=== PATIENT | female | born 1975 | race Caucasian/White ===

== ENCOUNTER → 2016-04-18 | Outpatient (CLI) | payer OTHER ==
--- OUTSIDE RECORDS SUMMARY | 2016-04-18 13:34 | XMS REPORT ---
Author Author VANESSA OLGUIN [facility], [place] eClinicalWorks Address Unknown Phone Unavailable Care Team Providers Care Rn Interventional Name Role Phone VANESSA OLGUIN CP Unavailable Allergies No Known Allergies Problems Problem Type Condition Code Onset Dates Condition Status Problem Essential hypertension I10 Active Problem Anxiety F41.9 Active Problem Migraine headache G43.909 Active Problem Insomnia G47.00 Active Problem Irritable bowel syndrome with diarrhea K58.0 Active Problem Cough R05 Active Medications Medication Code System Code Instructions Start Date End Date Status Dosage Aitdffejra-LWSA-Ruszhlyp [facility] [address]-83 50-325-40 MG Orally q4 hrs prn pain, do not exceed 6 tabs in 24 hrs September 03, 2015 2 capsules Results No Known Results Summary Purpose eClinicalWorks Submission
--- NOTE | 2016-04-18 19:00 | Diagnostic Imaging Report ---
Bilateral diagnostic mammogram. INDICATION: Right breast pain. The current study was also evaluated with a Computer Aided Detection (CAD) system. COMPARISON 02/24/2015. FINDINGS: There are scattered fibroglandular densities. There is a circumscribed 6 mm nodule unchanged from 2014 exam in the anterior aspect of the right breast at about 11 o'clock zone. Benign-appearing calcifications are seen in the left breast. Biopsy results are reviewed and demonstrate no underlying suspicious lesion. IMPRESSION: No mammographic evidence of malignancy. Ultrasound evaluation pending. ACR BI-RADS Category 0: Incomplete. (Needs additional imaging evaluation). Result letter will be mailed to the patient. Note: At least 10% of breast cancer is not imaged by mammography. Dictated by: Dictated on workstation # [id number]
--- NOTE | 2016-04-18 19:02 | Diagnostic Imaging Report ---
Right breast ultrasound. INDICATION: Lateral right breast pain. FINDINGS: Unremarkable breast parenchyma seen with no focal lesion around the area of pain. IMPRESSION: Negative study. Clinical follow-up recommended. ACR BI-RADS Category 1: Negative. Dictated by: Dictated on workstation # [id number]
== END ==
LOC: RAD 13:30
PROVIDERS: ATTEND Nurse Practitioner Family
DX: N64.1 Fat necrosis of breast (principal)
CPT/HCPCS: 77066

== ENCOUNTER → 2017-04-07 | Outpatient (CLI) | payer OTHER ==
--- NOTE | 2017-04-07 19:06 | Diagnostic Imaging Report ---
INDICATION: Palpable lump at the 3 o'clock location of the left breast. Patient currently denies having any palpable abnormality and states that the patient's physician felt a lump. Correlation is made with prior exams from 04/18/2016 and 02/04/2015. The current study was also evaluated with a Computer Aided Detection (CAD) system. FINDINGS: Scattered parenchymal densities are noted bilaterally. There are well-defined nodules in the right breast which appear stable. No new mass or malignant-appearing microcalcifications are seen. There is a biopsy clip in the lower-inner left breast. The axillae are unremarkable. IMPRESSION: No mammographic features suspicious for malignancy are identified. Even so, further evaluation of the left breast 3 clock location with ultrasound is recommended. ACR BI-RADS Category 0: Incomplete. (Needs additional imaging evaluation). Result letter will be mailed to the patient. Note: At least 10% of breast cancer is not imaged by mammography. Dictated by: Dictated on workstation # [id number]
--- NOTE | 2017-04-07 19:56 | Diagnostic Imaging Report ---
INDICATION: Palpable lump in the outer left breast. Patient denies palpable abnormality. Patient states the doctor felt a lump at the 3 o'clock location. FINDINGS: Sonographic interrogation of the 3 o'clock location of the left breast was performed and compared with the diagnostic mammogram earlier the same day. No solid or cystic mass is detected. The left axilla is unremarkable. IMPRESSION: No sonographic abnormality is seen. The patient may return to routine annual screening mammography. Continued close clinical and self breast exam is recommended to confirm stability of the palpable abnormality. ACR BI-RADS Category 1: Negative. Dictated by: Dictated on workstation # [id number]
== END ==
LOC: RAD 12:55
PROVIDERS: ATTEND Nurse Practitioner Family
DX: N63.20 Unspecified lump in the left breast, unspecified quadrant (principal)
CPT/HCPCS: 76642; 77066

== ENCOUNTER → 2018-04-17 | Outpatient (CLI) | payer OTHER ==
--- NOTE | 2018-04-18 21:23 | Diagnostic Imaging Report ---
INDICATION: Routine screening. Comparison is made with prior mammograms from 04/07/2017 and 04/18/2016. 2-D and 3-D bilateral screening mammography was performed with computer-aided Detection (CAD) system. FINDINGS: Scattered fibroglandular densities are identified bilaterally. Circumscribed benign-appearing nodular densities in the right breast are again noted and appear stable. Biopsy clip in the medial aspect of the left breast is again noted. No spiculated mass or malignant-appearing microcalcifications are seen. The axillae are unremarkable. IMPRESSION: No mammographic features suspicious for malignancy are identified. ACR BI-RADS Category 2: Benign findings. Result letter will be mailed to the patient. Note: At least 10% of breast cancer is not imaged by mammography. Dictated on workstation # [id number]
== END ==
LOC: RAD 15:36
PROVIDERS: ATTEND Nurse Practitioner Family
DX: Z12.31 Encounter for screening mammogram for malignant neoplasm of breast (principal)
CPT/HCPCS: 77067

== ENCOUNTER → 2019-04-18 | Outpatient (CLI) | payer MEDICAID, OTHER ==
--- NOTE | 2019-04-18 13:46 | Diagnostic Imaging Report ---
INDICATION: Routine screening. COMPARISON is made with prior mammograms from 04/17/2018 and 04/07/2017. 2-D and 3-D bilateral screening mammography was performed with CAD. Scattered fibroglandular densities are identified bilaterally. Right breast circumscribed nodular densities are stable. Biopsy clip in the left breast is stable. No new mass or malignant appearing microcalcifications are seen. Axillae are unremarkable. IMPRESSION: BI-RADS Category 2 No mammographic features suspicious for malignancy are identified. ACR BI-RADS Category 2: Benign findings. Result letter will be mailed to the patient. Note: At least 10% of breast cancer is not imaged by mammography. Dictated by: Dictated on workstation # [id number]
== END ==
LOC: RAD 10:17
PROVIDERS: ATTEND Nurse Practitioner Family
DX: Z12.31 Encounter for screening mammogram for malignant neoplasm of breast (principal)
CPT/HCPCS: 77067

== ENCOUNTER → 2020-05-29 | Outpatient (CLI) | payer MEDICAID ==
--- NOTE | 2020-06-01 08:45 | Diagnostic Imaging Report ---
INDICATION: Routine screening. COMPARISON: 04/18/2019 and 04/17/2018. TECHNIQUE: 2D and 3D bilateral screening mammography was performed with CAD. FINDINGS: Both breasts are heterogeneously dense, limiting the sensitivity of mammography. The nodular densities in the right breast are stable. There are benign calcifications present. There is a biopsy clip in the left breast. No new mass or malignant appearing microcalcifications are seen. The axillae are unremarkable. IMPRESSION: No mammographic features suspicious for malignancy are identified. ACR BI-RADS Category 2: Benign findings. Result letter will be mailed to the patient. Note: At least 10% of breast cancer is not imaged by mammography. Dictated by: Dictated on workstation # [id number]
== END ==
LOC: RAD 15:22
PROVIDERS: ATTEND Nurse Practitioner Family
DX: Z12.31 Encounter for screening mammogram for malignant neoplasm of breast (principal)
CPT/HCPCS: 77063; 77067

== ENCOUNTER → 2021-05-31 | Outpatient (CLI) | payer MEDICAID ==
--- NOTE | 2021-05-31 16:34 | Diagnostic Imaging Report ---
INDICATION: Routine screening. COMPARISON: 05/29/2020 and 04/18/2019. TECHNIQUE: 2D and 3D bilateral screening mammography was performed with CAD. FINDINGS: Scattered fibroglandular densities are identified bilaterally. The nodular densities in the upper outer right breast are stable. No spiculated mass or malignant-appearing microcalcifications are seen. The axillae are unremarkable. IMPRESSION: No mammographic features suspicious for malignancy are identified. ACR BI-RADS Category 2: Benign findings. Result letter will be mailed to the patient. Note: At least 10% of breast cancer is not imaged by mammography. Dictated by: Dictated on workstation # [id number]
== END ==
LOC: RAD 14:45
PROVIDERS: ATTEND Nurse Practitioner Family
DX: Z12.31 Encounter for screening mammogram for malignant neoplasm of breast (principal)
CPT/HCPCS: 77063; 77067

== ENCOUNTER → 2021-06-23 | Outpatient (CLI) | payer MEDICAID ==
--- NOTE | 2021-06-23 15:20 | Diagnostic Imaging Report ---
INDICATION: Pain in the left breast. Sonographic interrogation of the area of pain in the lower outer left breast was performed. No sonographic abnormality is identified. No solid or cystic masses detected. IMPRESSION: No sonographic abnormality is detected. ACR BI-RADS Category 1: Negative. Result letter will be mailed to the patient. Note: At least 10% of breast cancer is not imaged by mammography. BI-RADS Category 1 Dictated by: Dictated on workstation # [id number]
== END ==
LOC: RAD 14:15
PROVIDERS: ATTEND Nurse Practitioner Family
DX: N63.23 Unspecified lump in the left breast, lower outer quadrant (principal)
CPT/HCPCS: 76641

== ENCOUNTER 2021-12-16 05:30 | Outpatient (CLI) | payer MEDICAID ==
[~2021-12-16] VITALS: Ht 165.1 cm; Wt 81.8 kg
[2021-12-16] MEDS ORDERED: HYDR12.56 PO (15:52)
[2021-12-16] MEDS ORDERED: FURO-125 PO (15:52)
[2021-12-16] MEDS ORDERED: ATEN50TA PO (16:14)
[2021-12-16] MEDS ORDERED: UBRO100T PO (16:14)
[2021-12-16] MEDS ORDERED: SUVO20TA2 PO (16:14)
[2021-12-16] MEDS ORDERED: AMLO-251 PO (16:14)
[2021-12-16] MEDS ORDERED: DIPH1TAB PO (16:14)
[2021-12-16] MEDS ORDERED: ONDA4TAB11 SL (16:14)
[2021-12-16] MEDS ORDERED: QUET50TA PO (16:14)
[2021-12-16] MEDS ORDERED: CYCL5TAB PO (16:14)
[2021-12-16] MEDS ORDERED: VILA40TA PO (16:14)
[2021-12-16] MEDS ORDERED: COLE1TAB PO (16:14)
== END 2021-12-16 16:34 | disposition home or self-care (01) ==
LOC: PREOP 05:30
PROVIDERS: ATTEND Otolaryngology Otolaryngology/Facial Plastic Surgery
DX: Z01.818 Encounter for other preprocedural examination (principal)

== ENCOUNTER 2021-12-23 06:48 | Day surgery (SDC) | payer MEDICAID ==
[2021-12-23] VITALS (11 sets, daily range): BP systolic 102–134; BP diastolic 53–85
[~2021-12-23] VITALS: Ht 165.1 cm; Wt 81.8 kg
[~2021-12-23 06:48] MED LIST: AMLO-251 PO; ATEN50TA PO; COLE1TAB PO; CYCL5TAB PO; DIPH1TAB PO; FURO-125 PO; HYDR12.56 PO; ONDA4TAB11 SL; QUET50TA PO; SUVO20TA2 PO; UBRO100T PO; VILA40TA PO
[2021-12-23] MEDS ORDERED: MIDAZOLAM 2 MG/2 ML (VERSED) VIAL IV ONE (07:15)
[2021-12-23 07:28] LABS: BASOPHILS # (AUTO) 0.1 10^3/uL (0.0-0.1); BASOPHILS % (AUTO) 1 % (0-10); EOSINOPHILS # (AUTO) 0.1 10^3/uL (0.0-0.3); EOSINOPHILS % (AUTO) 2 % (0-10); HEMATOCRIT 40 % (35-52); HEMOGLOBIN 13.9 g/dL (11.5-16.0); LYMPHOCYTES # (AUTO) 1.5 10^3/uL (1.0-4.0); LYMPHOCYTES % (AUTO) 21 % (12-44); MEAN CORPUSCULAR HEMOGLOBIN 31 pg (25-34); MEAN CORPUSCULAR HGB CONC 35 g/dL (32-36); MEAN CORPUSCULAR VOLUME 89 fL (80-99); MEAN PLATELET VOLUME 9.1 fL (9.0-12.2); MONOCYTES # (AUTO) 0.5 10^3/uL (0.0-1.0); MONOCYTES % (AUTO) 7 % (0-12); NEUTROPHILS # (AUTO) 4.9 10^3/uL (1.8-7.8); NEUTROPHILS % (AUTO) 69 % (42-75); PLATELET COUNT 305 10^3/uL (130-400); WHITE BLOOD COUNT 7.1 10^3/uL (4.3-11.0)
[2021-12-23] MEDS ORDERED: LACTATED RINGERS 1,000 ML IV PRN (07:30)
[2021-12-23 07:49] LABS: CALCIUM 9.2 MG/DL (8.5-10.1); CREATININE SERUM 0.8 MG/DL (0.60-1.30); POTASSIUM 4.2 MMOL/L (3.6-5.0)
[2021-12-23] MEDS ORDERED: LIDOCAINE/EPI 2% 1:200,00 (XYLOCAINE) 10 ML VIAL ONE (08:13)
[2021-12-23] MEDS ORDERED: MUPIROCIN 2% OINT 22 GM (BACTROBAN) TUBE ONE (08:13)
[2021-12-23] MEDS ORDERED: proPOfol 200 MG/20 ML (DIPRIVAN) VIAL IV ONE (08:24)
[2021-12-23] MEDS ORDERED: fentaNYL INJ 100 MCG/2 ML AMP ONE (08:24)
[2021-12-23] MEDS ORDERED: LIDOCAINE PF 2% 5 ML (XYLOCAINE) VIAL ONE (08:24)
[2021-12-23] MEDS ORDERED: MIDAZOLAM 2 MG/2 ML (VERSED) VIAL ONE (08:24)
--- NOTE | 2021-12-23 09:09 | Progress Note-Pre Operative ---
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
[2021-12-23] MEDS ORDERED: ROCURONIUM 10 MG/ML 5 ML SYRINGE IV ONE (09:31)
[2021-12-23] MEDS ORDERED: BSS 15 ML ONE (09:42)
[2021-12-23] MEDS ORDERED: HYDROcodone/APAP 5 MG/325 MG (LORTAB) TAB PO PRN (09:45)
[2021-12-23] MEDS ORDERED: ACETAMINOPHEN 325 MG TABLET PO PRN (09:45)
--- NOTE | 2021-12-23 09:45 | Progress Note-Post Operative ---
Post-Operative Progess Note Surgeon (s)/Guidance And Control System Engineer (s) Surgeon JUAN GONZALEZ MD Guidance And Control System Engineer n/a Pre-Operative Diagnosis Basal cell Carcinoma of Left Lower Eyelid Post-Operative Diagnosis same Post-Op Procedure Note Date of Procedure: Dec 23, 2021 Name of Procedure Performed: Excison of Left Lower Eyelid Lesion with INtermediate Repair Description & Findings Description and Findings: n/a Anesthesia Type lma Estimated Blood Loss minimal Packing none. Specimen(s) collected/removed left lower eyelid lesion for frozen JUAN GONZALEZ MD Dec 23, 2021 09:44
[2021-12-23] MEDS ORDERED: NEOSTIGMINE (BLOXIVERZ ) 1 MG/1ML 10 ML VIAL ONE (09:55)
[2021-12-23] MEDS ORDERED: GLYCOPYRROLATE 0.2 MG/ML (ROBINUL) 2 ML VIAL ONE (09:55)
[2021-12-23] MEDS ORDERED: ONDANSETRON 4 MG/2 ML (SDV) Z0FRAN ONE (10:33)
--- NOTE | 2021-12-23 10:39 | Anesthesia-General Post-Op ---
General Patient Condition Mental Status/LOC: Same as Preop Cardiovascular: Satisfactory Nausea/Vomiting: Absent Respiratory: Satisfactory Pain: Controlled Complications: Absent Post Op Complications Complications None Follow Up Care/Instructions Patient Instructions None needed. Anesthesia/Patient Condition Patient Condition Patient is doing well, no complaints, stable vital signs, no apparent adverse anesthesia problems. No complications reported per nursing. MINO SALAZAR CRNA Dec 23, 2021 10:39
[2021-12-23] MEDS ORDERED: SEVOFLURANE (ULTANE) 15 ML INHAL SOLN ONE (10:42)
[2021-12-23] MEDS ORDERED: ONDANSETRON 4 MG/2 ML (SDV) Z0FRAN IVP PRN (10:45)
[2021-12-23] MEDS ORDERED: fentaNYL INJ 100 MCG/2 ML AMP IVP ONE (10:45)
[2021-12-23] MEDS ORDERED: PROMETHAZINE INJ 25 MG/ML (PHENERGAN) AMP IVP ONE (10:45)
[2021-12-23] MEDS ORDERED: ACHD5005 PO (10:59)
== END 2021-12-23 12:35 | disposition home or self-care (01) ==
LOC: SDC 06:48
PROVIDERS: ATTEND Otolaryngology Otolaryngology/Facial Plastic Surgery
DX: C44.1192 Basal cell carcinoma of skin of left lower eyelid, including canthus (principal); F17.210 Nicotine dependence, cigarettes, uncomplicated
CPT/HCPCS: 36415; 80048; 85025; 87081

== ENCOUNTER → 2022-07-08 | Outpatient (CLI) | payer MEDICAID ==
[~2022-07-08] MED LIST changes: +ACHD5005 PO
--- NOTE | 2022-07-11 12:27 | Diagnostic Imaging Report ---
INDICATION: Routine screening. COMPARISON: 05/31/2021 and 05/29/2020. TECHNIQUE: 2D and 3D bilateral screening mammography was performed with CAD. FINDINGS: Scattered fibroglandular densities are identified bilaterally. Circumscribed nodules in the right breast appear stable. A marker clip in the left breast is noted. No spiculated mass or malignant-appearing microcalcifications are seen. The axillae are unremarkable. IMPRESSION: No mammographic features suspicious for malignancy are identified. ACR BI-RADS Category 2: Benign findings. Result letter will be mailed to the patient. Note: At least 10% of breast cancer is not imaged by mammography. Dictated by: Dictated on workstation # [id number]
== END ==
LOC: RAD 15:44
PROVIDERS: ATTEND Nurse Practitioner Family
DX: Z12.31 Encounter for screening mammogram for malignant neoplasm of breast (principal)
CPT/HCPCS: 77063; 77067